=== PATIENT | female | born 1985 | race Caucasian/White ===

== ENCOUNTER → 2016-11-17 | Outpatient (CLI) | payer OTHER ==
[~2016-11-17] MED LIST: BACTRIM DS 8001 TAB PO; CIPRO 500MG TA500 MG PO; LORTAB 5/500 501 TAB PO; PHENERGAN 25MG.25 M1 PO; VIBRAMYCIN HYC100 MG PO
[2016-11-17 17:41] LABS: LYMPH # 2.8 K/mm3 (0.7-4.5); LYMPH % 44.4 % (10-50.0)
[2016-11-17 18:38] LABS: BUN 9 mg/dL (7-18)
[2016-11-17 18:39] LABS: GFR (ESTIMATED) 85 ML/MIN (59-)
== END ==
LOC: LAB 16:16
PROVIDERS: Nurse Practitioner Family
DX: R53.83 Other fatigue (principal)